=== PATIENT | male | born 1985 | race Caucasian/White ===

== ENCOUNTER 2019-06-05 00:26 | Emergency (ER) | payer BC ==
[2019-06-05 00:36] VITALS: TEMP 99.2
[2019-06-05] MEDS ORDERED: SODIUM CHLORIDE 0.9% 1,000 ML IV STA (00:52)
[2019-06-05] MEDS ORDERED: TOPICAL SKIN ADHESIVE 1 EACH AMP TOPICAL ONE (00:55)
--- NOTE | 2019-06-05 00:59 | ED ---
Syncope HPI - General Source: patient, family Mode of arrival: ambulatory Limitations: no limitations <Lucrecia Rush - Last Filed: 06/05/19 03:48> <Marialuisa Marie - Last Filed: 06/05/19 05:31> - General Chief Complaint: Syncope Stated Complaint: Fall, Nose Laceration Time Seen by Provider: 06/05/19 00:37 - History of Present Illness Initial Comments: 34-year-old male patient presents to the emergency department today for evaluation after having a syncopal episode. Patient states that he had the urge to have a bowel movement he got up went to the bathroom. Patient states he is sitting on the toilet and next thing he knew he was feeling dizzy with muffled sound and then he passed out. Patient did strike his face causing laceration and nasal bleeding. Patient states he is having facial pain. Denies any headache. Denies any blurred or double vision. Denies any neck or back pain. Patient states he has passed out one time the past but was related to alcohol use. He denies any current chest pain, shortness of breath, dizziness, weakness, abdominal pain, nausea, or vomiting. Patient believes he has had a tetanus vaccine in the last 5 years. 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 Patient follows with Dr. Muro for this and states she has had no complications. Patient denies any recent rash, fever, chills, diarrhea, constipation, back pain, numbness, tingling, hematuria, dysuria, urinary urgency, urinary frequency, or any other complaints. (Lucrecia Rush) - Related Data Previous Rx's Medication Instructions Recorded Cephalexin [Keflex] 500 mg PO Q6H #28 cap 06/05/19 Allergies Allergy/AdvReac Type Severity Reaction Status Date / Time No Known Allergies Allergy Verified 06/05/19 00:36 Review of Systems ROS Other: All systems not noted in ROS Statement are negative. <Lucrecia Rush - Last Filed: 06/05/19 03:48> ROS Other: All systems not noted in ROS Statement are negative. <Marialuisa Marie - Last Filed: 06/05/19 05:31> ROS Statement: Those systems with pertinent positive or pertinent negative responses have been documented in the HPI. Past Medical History Past Medical History: Hypertension Additional Past Medical History / Comment(s): Heart disease History of Any Multi-Drug Resistant Organisms: None Reported Past Surgical History: No Surgical Hx Reported Past Psychological History: No Psychological Hx Reported Smoking Status: Former smoker Past Alcohol Use History: None Reported Past Drug Use History: None Reported <Lucrecia Rush Reji - Last Filed: 06/05/19 03:48> General Exam Limitations: no limitations General appearance: alert, in no apparent distress, other (Physical well- developed, well-nourished adult male patient in no acute distress. Vital signs upon presentation are temperature 99.2F, pulse 89, respirations 18, blood pressure 149/96, pulse ox 99% on room air.) Eye exam: Present: normal appearance, PERRL, EOMI. Absent: scleral icterus, conjunctival injection, periorbital swelling ENT exam: Present: normal oropharynx, mucous membranes moist, TM's normal bilaterally, other (There is a 1 cm laceration to the bridge of the nasal bone. There is bleeding from bilateral nares. There is no septal hematoma. There is tenderness over the nasal bone. There are no loose or broken teeth. There is a contusion and 1 cm laceration to the bucchal surface of th upper lip, also soft tissue swelling.). Absent: normal exam Neck exam: Present: normal inspection, full ROM, other (Nontender, no step-off, no deformity to firm midline palpation of the posterior cervical spine. Full r codey of motion without pain or limitation.). Absent: tenderness, meningismus, lymphadenopathy Respiratory exam: Present: normal lung sounds bilaterally. Absent: respiratory distress, wheezes, rales, rhonchi, stridor Cardiovascular Exam: Present: regular rate, normal rhythm, normal heart sounds. Absent: systolic murmur, diastolic murmur, rubs, gallop, clicks GI/Abdominal exam: Present: soft, normal bowel sounds. Absent: distended, tenderness, guarding, rebound, rigid Back exam: Present: normal inspection, other (Nontender, no step-off, no deformity to firm midline palpation of the thoracic and lumbar vertebrae. Full range of motion without pain or limitation.). Absent: vertebral tenderness Neurological exam: Present: alert, oriented X3, CN II-XII intact Psychiatric exam: Present: normal affect, normal mood Skin exam: Present: warm, dry, intact, normal color. Absent: rash <Lucrecia Rush Reji - Last Filed: 06/05/19 03:48> Course Vital Signs 06/05/19 06/05/19 00:32 02:33 Temperature 99.2 F Pulse Rate 89 86 Respiratory 18 16 Rate Blood Pressure 149/96 135/75 O2 Sat by Pulse 99 99 Oximetry EKG Findings - EKG Comments: EKG Findings:: EKG obtained at 0045 shows normal sinus rhythm with a ventricular rate of 90, [place] interval 120, QRS duration 114, QTC 368, QTC 450. No evidence of ST elevation or depression. <Lucrecia Rush M - Last Filed: 06/05/19 03:48> Procedures - Laceration Laceration #1 Consent Obtained: verbal consent Indication: laceration Site: face Size (cm): 2 Description: stellate Depth: simple, single layer Type of Sutures: other (exofin) Patient Tolerated Procedure: well, no complications <Lucrecia Rush - Last Filed: 06/05/19 03:48> Medical Decision Making - Lab Data Result diagrams: 06/05/19 00:51 06/05/19 00:51 - Radiology Data Radiology results: report reviewed, image reviewed <Lucrecia Rush - Last Filed: 06/05/19 03:48> - Lab Data Result diagrams: 06/05/19 00:51 06/05/19 00:51 <Marialuisa Marie - Last Filed: 06/05/19 05:31> - Medical Decision Making 34-year-old male patient presented to the emergency department today for evaluation after experiencing a syncopal event. Physical examination did reveal laceration to the nasal bridge. Bleeding from the bilateral nares. Abrasion to the upper lip, laceration to the mucosal surface of the upper lip. Dentition was intact with no loose or broken teeth. Patient was neurologically intact with no focal deficits. No neck or back tenderness. Labs reviewed and are unremarkable. EKG showed normal sinus rhythm. Brain and facial bone CT was negative for any acute abnormalities other than a suspected left nasal bone fracture. Chest x-ray showed no acute cardiopulmonary process. It is felt the patient syncopal event was related to a vasovagal event due to having a bowel movement. Laceration to the nose was repaired using exofin skin adhesive. Patient be started on antibiotics for open nasal bone fracture. Patient will be discharged to follow-up with his primary care physician for recheck in 1-2 days. Return parameters were discussed in detail. He verbalizes understanding and agrees with this plan. (Lucrecia Rush) I was available for consultation in the emergency department. The history and physical exam were done by the midlevel provider. I was consulted for this patient's care. I reviewed the case with the midlevel provider and based on their presentation of the patient, I agree with the assessment, medical decision making and plan of care as documented. Chart was dictated using CE[employer] dictation software. Attempts were made to correct any dictation errors however some typographical errors may persist. (Marialuisa Marie) - Lab Data Lab Results 06/05/19 06/05/19 06/05/19 Range/Units 00:51 00:51 00:51 WBC 11.8 H (3.8-10.6) k/uL RBC 5.12 (4.30-5.90) m/uL Hgb 14.3 (13.0-17.5) gm/dL Hct 42.2 (39.0-53.0) % MCV 82.6 (80.0-100.0) fL MCH 27.9 (25.0-35.0) pg MCHC 33.8 (31.0-37.0) g/dL RDW 14.5 (11.5-15.5) % Plt Count 295 (150-450) k/uL Neutrophils % 72 % Lymphocytes % 16 % Monocytes % 5 % Eosinophils % 4 % Basophils % 1 % Neutrophils # 8.5 H (1.3-7.7) k/uL Lymphocytes # 1.9 (1.0-4.8) k/uL Monocytes # 0.6 (0-1.0) k/uL Eosinophils # 0.5 (0-0.7) k/uL Basophils # 0.1 (0-0.2) k/uL PT 10.0 (9.0-12.0) sec INR 0.9 (<1.2) APTT 20.0 L (22.0-30.0) sec Sodium 141 (137-145) mmol/L Potassium 3.8 (3.5-5.1) mmol/L Chloride 105 (98-107) mmol/L Carbon Dioxide 27 (22-30) mmol/L Anion Gap 9 mmol/L BUN 19 (9-20) mg/dL Creatinine 0.91 (0.66-1.25) mg/dL Est GFR (CKD-EPI)AfAm >90 (>60 ml/min/1.73 sqM) Est GFR (CKD-EPI)NonAf >90 (>60 ml/min/1.73 sqM) Glucose 114 H (74-99) mg/dL Calcium 9.8 (8.4-10.2) mg/dL Total Bilirubin 0.3 (0.2-1.3) mg/dL AST 28 (17-59) U/L ALT 43 (21-72) U/L Alkaline Phosphatase 113 (38-126) U/L Troponin I (0.000-0.034) ng/mL Total Protein 7.5 (6.3-8.2) g/dL Albumin 4.6 (3.5-5.0) g/dL 06/05/19 Range/Units 00:51 WBC (3.8-10.6) k/uL RBC (4.30-5.90) m/uL Hgb (13.0-17.5) gm/dL Hct (39.0-53.0) % MCV (80.0-100.0) fL MCH (25.0-35.0) pg MCHC (31.0-37.0) g/dL RDW (11.5-15.5) % Plt Count (150-450) k/uL Neutrophils % % Lymphocytes % % Monocytes % % Eosinophils % % Basophils % % Neutrophils # (1.3-7.7) k/uL Lymphocytes # (1.0-4.8) k/uL Monocytes # (0-1.0) k/uL Eosinophils # (0-0.7) k/uL Basophils # (0-0.2) k/uL PT (9.0-12.0) sec INR (<1.2) APTT (22.0-30.0) sec Sodium (137-145) mmol/L Potassium (3.5-5.1) mmol/L Chloride (98-107) mmol/L Carbon Dioxide (22-30) mmol/L Anion Gap mmol/L BUN (9-20) mg/dL Creatinine (0.66-1.25) mg/dL Est GFR (CKD-EPI)AfAm (>60 ml/min/1.73 sqM) Est GFR (CKD-EPI)NonAf (>60 ml/min/1.73 sqM) Glucose (74-99) mg/dL Calcium (8.4-10.2) mg/dL Total Bilirubin (0.2-1.3) mg/dL AST (17-59) U/L ALT (21-72) U/L Alkaline Phosphatase (38-126) U/L Troponin I <0.012 (0.000-0.034) ng/mL Total Protein (6.3-8.2) g/dL Albumin (3.5-5.0) g/dL - Radiology Data CT brain without contrast was obtained. Impression by Dr. Serra shows possibility of a minimally displaced nasal bone fracture on the left. Two-view x-ray of the chest is obtained. Report was reviewed in its entirety. Impression by Dr. Serra shows normal chest x-rays per CT of the facial bones without contrast was obtained. Report was reviewed in its entirety. Impression by Dr. Serra shows minimally displaced nasal bone fracture suspected on the left. (Lucrecia Rush) Disposition Is patient prescribed a controlled substance at d/c from ED?: No Time of Disposition: 02:22 <Lucrecia Rush - Last Filed: 06/05/19 03:48> <Marialuisa Marie - Last Filed: 06/05/19 05:31> Clinical Impression: Nasal bone fracture, Facial laceration, Syncope Disposition: HOME SELF-CARE Condition: Good Instructions (If sedation given, give patient instructions): Nasal Fracture (ED), Laceration (ED), Syncope (ED), Skin Adhesive Care (ED) Additional Instructions: Complete antibiotic prescription in full. Follow-up with your primary care physician for recheck in 1-2 days. Monitor wounds for signs or symptoms of infection including but not limited to swelling, redness, drainage, fever, or chills. Return to the emergency department immediately for any new, worsening, or concerning symptoms per Prescriptions: Cephalexin [Keflex] 500 mg PO Q6H #28 cap Referrals: Sameera Bolton DO [Primary Care Provider] - 1-2 days
[2019-06-05 01:04] LABS: Basophils # (A) 0.1 k/uL (0-0.2); Basophils % (A) 1 %; Eosinophils # (A) 0.5 k/uL (0-0.7); Eosinophils % (A) 4 %; HCT 42.2 % (39.0-53.0); HGB 14.3 gm/dL (13.0-17.5); Lymphocytes # (A) 1.9 k/uL (1.0-4.8); Lymphocytes % (A) 16 %; MCH 27.9 pg (25.0-35.0); MCHC 33.8 g/dL (31.0-37.0); MCV 82.6 fL (80.0-100.0); Mean Platelet Volume 8.2; Monocytes # (A) 0.6 k/uL (0-1.0); Monocytes % (A) 5 %; Neutrophils # (A) 8.5 k/uL (1.3-7.7); Neutrophils % (A) 72 %; Platelet Count 295 k/uL (150-450); RBC 5.12 m/uL (4.30-5.90); RDW 14.5 % (11.5-15.5); WBC 11.8 k/uL (3.8-10.6)
[2019-06-05 01:13] LABS: ALT 43 U/L (21-72); AST 28 U/L (17-59); African American GFR (CKD) >90 (>60 ml/min/1.73 sqM); Albumin 4.6 g/dL (3.5-5.0); Alkaline Phosphatase 113 U/L (38-126); Anion Gap 9 mmol/L; Blood Urea Nitrogen 19 mg/dL (9-20); Calcium 9.8 mg/dL (8.4-10.2); Carbon Dioxide 27 mmol/L (22-30); Chloride 105 mmol/L (98-107); Glucose 114 mg/dL (74-99); Potassium 3.8 mmol/L (3.5-5.1); Sodium 141 mmol/L (137-145); Total Bilirubin 0.3 mg/dL (0.2-1.3); Total Protein 7.5 g/dL (6.3-8.2)
[2019-06-05 01:22] LABS: INR 0.9 (<1.2)
--- NOTE | 2019-06-05 01:44 | CT ---
EXAM: CT Head Without Intravenous Contrast CLINICAL HISTORY: syncope TECHNIQUE: Axial computed tomography images of the head/brain without intravenous contrast. CTDI is 45.2 mGy and DLP is 1515 mGy-cm. This CT exam was performed using one or more of the following dose reduction techniques: automated exposure control, adjustment of the mA and/or kV according to patient size, and/or use of iterative reconstruction technique. COMPARISON: No relevant prior studies available. FINDINGS: Brain: Unremarkable. No hemorrhage. No significant white matter disease. No edema. Ventricles: Unremarkable. No ventriculomegaly. Bones/joints: Possibly minimally displaced nasal bone fracture on the left Soft tissues: Unremarkable. Sinuses: Because of thickening in the left maxillary sinus. Mastoid air cells: Unremarkable as visualized. No mastoid effusion. IMPRESSION: Possibility of a minimally displaced nasal bone fracture on the left.
--- NOTE | 2019-06-05 01:47 | CT ---
EXAM: CT Maxillofacial Without Intravenous Contrast CLINICAL HISTORY: Pain TECHNIQUE: Axial computed tomography images of the face without intravenous contrast. CTDI is 45.2 mGy and DLP is 1515.6 mGy-cm. This CT exam was performed using one or more of the following dose reduction techniques: automated exposure control, adjustment of the mA and/or kV according to patient size, and/or use of iterative reconstruction technique. COMPARISON: No relevant prior studies available. FINDINGS: Bones/joints: Minimally displaced left nasal bone fracture suspected. The mandible and maxilla are intact. Soft tissues: Unremarkable. Orbits: Left and right globe are intact. No evidence for fracture the orbits. No evidence for retrobulbar hemorrhage or hematoma. Sinuses: Mucosal thickening in the left maxillary sinus. IMPRESSION: Minimally displaced nasal bone fracture suspected on the left
--- NOTE | 2019-06-05 01:49 | XR ---
EXAM: XR Chest, 2 Views CLINICAL HISTORY: : syncope TECHNIQUE: Frontal and lateral views of the chest. COMPARISON: No relevant prior studies available. FINDINGS: Lungs: Unremarkable. No consolidation. Pleural space: Unremarkable. No pneumothorax. Heart: Unremarkable. No cardiomegaly. Mediastinum: Unremarkable. Bones/joints: Unremarkable. IMPRESSION: Normal chest x-rays.
[2019-06-05] MEDS ORDERED: CEPHALEXIN 500MG STARTER PACK 4 CAP BTL PO STA (02:23)
[2019-06-05 02:34] VITALS: BP 135/75; PULSE 86; RESP 16
== END 2019-06-05 02:33 | disposition home or self-care (01) ==
LOC: EC 00:26
DX: S02.2XXA Fracture of nasal bones, initial encounter for closed fracture (principal); S01.21XA Laceration without foreign body of nose, initial encounter; S01.511A Laceration without foreign body of lip, initial encounter; Z87.891 Personal history of nicotine dependence; W19.XXXA Unspecified fall, initial encounter; Y92.002 Bathroom of unspecified non-institutional (private) residence as the place of occurrence of the external cause
CPT/HCPCS: 12011; 36415; 70450; 70486; 71046; 80053; 84484; 85025; 85610; 85730; 93005; 96360; 99284

== ENCOUNTER → 2021-01-29 | Outpatient (CLI) | payer BC ==
[2021-01-30 16:52] LABS: T4, Free (Free Thyroxine) 1.1 ng/dL (0.80-1.80)
== END | disposition home or self-care (01) ==
LOC: LABWHC1 14:48
PROVIDERS: ATTEND Internal Medicine Interventional Cardiology
DX: E05.90 Thyrotoxicosis, unspecified without thyrotoxic crisis or storm (principal)
CPT/HCPCS: 36415; 84439; 84443

== ENCOUNTER → 2023-03-25 | Outpatient (CLI) | payer BC ==
--- NOTE | 2023-03-25 15:27 | CT ---
EXAMINATION TYPE: CT angio chest DATE OF EXAM: 03/25/2023 COMPARISON: None HISTORY: Bicuspid malformation since . CT DLP: 879.90 mGycm CONTRAST: CTA thoracic aorta with 3-D reconstruction is performed and with IV Contrast, patient injected with 1 00cc mL of Isovue 370. Contrast CTA of the thoracic aorta was performed from the lung apex through the upper abdomen. 3D re construction imaging obtained at a separate workstation. CT Chest: THORACIC AORTA: No evidence for thoracic aortic aneurysm. Mild atheromatous changes seen. There is n o evidence for dissection or periaortic collection. LUNGS: The lungs are clear and free of infiltrate or atelectasis. No pulmonary nodule or mass is det ected. No pleural effusion or CT evidence of interstitial lung disease. MEDIASTINUM: No evidence for mediastinal hematoma. The heart is not enlarged. There may be a bicu spid aortic valve. No evidence for mediastinal mass or adenopathy. Moderate fixed hiatal hernia. HILAR STRUCTURES: No evidence for mass. No hilar adenopathy is appreciated. OTHER: No significant abnormality. IMPRESSION- No evidence for aneurysm or dissection.
== END | disposition home or self-care (01) ==
LOC: RADCTMAIN 14:17
PROVIDERS: ATTEND Internal Medicine Interventional Cardiology
DX: I71.20 Thoracic aortic aneurysm, without rupture, unspecified (principal)
CPT/HCPCS: 71275; Q9967

== ENCOUNTER 2023-05-10 13:13 | Day surgery (SDC) | payer BC ==
[2023-05-05 16:00] VITALS: BMI 31.9
[~2023-05-10 13:13] MED LIST: LACTATED RINGERS 1,000 ML IV SCH
[2023-05-10 13:51] VITALS: TEMP 97.1
[2023-05-10] MEDS ORDERED: PROPOFOL 10 MG/ML 20 ML VIAL IV ONE (14:50)
[2023-05-10] MEDS ORDERED: LIDOCAINE 2% INJ 20 MG/ML (2 ML VIAL) ONE (14:50)
--- NOTE | 2023-05-10 15:01 | P.OP ---
Date of Procedure: 05/10/23 Preoperative Diagnosis: GERD Hiatal hernia Postoperative Diagnosis: GERD Moderate size fixed hiatal hernia Procedure(s) Performed: EGD Anesthesia: MAC Surgeon: Martínez Baeza Pathology: other (Antrum, esophagus) Condition: stable Disposition: PACU Description of Procedure: The patient's placed on the endoscopy table in the lateral position. He received IV sedation. The gastro-/oropharynx passed in the esophagus and. Scope was then placed through the pylorus. The first and second portion of the duodenum appeared normal. Scope summer back the antrum this. Mildly inflamed. A biopsies performed. The scope was then retroflexed and there was a moderate size fixed hiatal hernia. GE junction was at 38 cm. The distal esophagus appeared inflamed. A biopsies performed. The proximal esophagus. Scope withdrawn for patient.
[2023-05-10 15:31] VITALS: BP 124/79; PULSE 69; RESP 16
== END 2023-05-10 15:45 | disposition home or self-care (01) ==
LOC: ORWHC2ENDO 13:13
PROVIDERS: ATTEND Surgery
DX: K29.50 Unspecified chronic gastritis without bleeding (principal); K21.00 Gastro-esophageal reflux disease with esophagitis, without bleeding; K44.9 Diaphragmatic hernia without obstruction or gangrene; I10 Essential (primary) hypertension; E78.5 Hyperlipidemia, unspecified; Z87.891 Personal history of nicotine dependence; Z79.899 Other long term (current) drug therapy
CPT/HCPCS: 88305; 43239; J2704; J2001

== ENCOUNTER → 2023-06-08 | Outpatient (CLI) | payer BC ==
[2023-06-09 01:28] LABS: Basophils # (A) 0.08 X 10*3/uL (0.00-0.10); Basophils % (A) 0.9 %; Eosinophils # (A) 0.45 X 10*3/uL (0.04-0.35); HCT 43.7 % (39.6-50.0); HGB 13.6 d/dL (12.0-15.0); Lymphocytes # (A) 1.83 X 10*3/uL (0.90-5.00); Lymphocytes % (A) 20.3 %; MCH 27.8 pg (27.0-32.0); MCHC 31.1 d/dL (32.0-37.0); MCV 89.4 FL (80.0-97.0); Mean Platelet Volume 11.7 FL (9.5-12.2); Monocytes # (A) 0.86 X 10*3/uL (0.20-1.00); Monocytes % (A) 9.6 %; NRBC Per 100 WBC 0 X 10*3/uL (0.00-0.01); Neutrophils # (A) 5.75 X 10*3/uL (1.80-7.70); Neutrophils % (A) 63.9 %; Platelet Count 332 X 10*3/uL (140-440); RBC 4.89 X 10*6/uL (4.40-5.60); RDW 12.8 % (11.5-14.5)
== END | disposition home or self-care (01) ==
LOC: LABPAT 16:03
PROVIDERS: ATTEND Surgery
DX: Z01.812 Encounter for preprocedural laboratory examination (principal)
CPT/HCPCS: 85025

== ENCOUNTER 2023-06-14 06:49 | Inpatient (IN) | payer BC ==
[~2023-06-14 06:49] MED LIST changes: +ACETAMINOPHEN TAB 500 MG TAB PO PRN; +DEXAMETHASONE SOD PHOSPHATE 4 MG/ML 1 ML VIAL IV ONE; +HEPARIN SODIUM,PORCINE/PF 5,000 UNIT/0.5 ML SYRINGE SQ PRN; +HYDROmorphone 0.5 MG/0.5 ML SYRINGE IVP PRN; +LIDOCAINE 1% (10MG/ML) FOR IV START INTRADERMA PRN; +ONDANSETRON 4 MG/2 ML VIAL IVP PRN; +droPERidol 5 MG/2 ML VIAL IVP ONE
[2023-06-14] MEDS ORDERED: KETOROLAC 15 MG/ML 1 ML VIAL ONE (07:58)
[2023-06-14] MEDS ORDERED: SUCCINYLCHOLINE CHLORIDE 200 MG/10 ML VIAL IV ONE (07:58)
[2023-06-14] MEDS ORDERED: SUGAMMADEX SODIUM 200 MG/2 ML SDV IV ONE (07:58)
[2023-06-14] MEDS ORDERED: ROCURONIUM 10 MG/ML (5 ML VIAL) IV ONE (07:58)
[2023-06-14] MEDS ORDERED: fentaNYL (PF) 50 MCG/ML 2 ML AMP ONE (07:58)
[2023-06-14] MEDS ORDERED: MIDAZOLAM 2 MG/2 ML VIAL ONE (07:58)
[2023-06-14] MEDS ORDERED: PROPOFOL 10 MG/ML 20 ML VIAL IV ONE (07:58)
[2023-06-14] MEDS ORDERED: BUPIVACAINE (PF) 0.25% 30 ML VIAL SQ ONE (08:25)
[2023-06-14] MEDS ORDERED: ONDANSETRON 4 MG/2 ML VIAL IVP PRN (09:08)
[2023-06-14] MEDS ORDERED: HYDROmorphone 1 MG/ML 1 ML SYRINGE IVP PRN (09:08)
--- NOTE | 2023-06-14 09:08 | P.OP ---
Date of Procedure: 06/14/23 Preoperative Diagnosis: GERD Postoperative Diagnosis: GERD Hiatal hernia Procedure(s) Performed: Laparoscopic Brianda fundoplication Anesthesia: SHAYAN Surgeon: Martínez Baeza Pathology: none sent Condition: stable Disposition: PACU Description of Procedure: HarThe patient was placed on the operating table in the supine position. The patient received general anesthesia. And was placed in dorsal lithotomy position. The patient was prepped and draped in the usual sterile fashion. The skin incision sites were anesthetized with 1% local Xylocaine. The skin was incised in the left periumbilical area and then using a blade less 5 mm trocar under direct visualization panel cavity was entered. After adequate insufflation the laparoscope was then placed into the peritoneal cavity. Next a 5 mm trochars placed in the right epigastric position. Another 5 millimeter trocar the right lateral position. Another 5 millimeter trocar in the left lateral position a 5 mm trocar is placed in the left epigastric position. And then the initial 5 mm trocar was exchanged for a 10 mm trocar. The left lateral lobe liver was retracted. The hernia was seen. The crural defect was then dissected using the Harmonic scissors device. A 360 crural dissection was performed the esophagus stomach was reduced back into the peritoneal Cavity. The crural defect was then closed using 2-0 Ethibond suture. Next the fundus of the stomach was mobilized using the Ilfeld scissors device. and then a 58- Ukrainian bougie dilator was placed oropharynx passed into the esophagus and stomach the fundal plication wrap was then performed by grasping the fundus posteriorly and bringing it around the esophagus and stomach fundoplication was then performed using 2-0 Ethibond suture. Care was taken that the fundal location rested over top of the intra-abdominal esophagus. There was no injury seen to the stomach or esophagus. The dilator was then withdrawn. The abdomen was irrigated there is no bleeding seen. The trochars were then withdrawn and then skin incision sites were closed using 3-0 Monocryl suture Steri-Strips are applied. Patient thought procedure well and sent to recovery room in stable condition.
[2023-06-14] MEDS: D5-0.45% NACL WITH KCL 20MEQ/L 1,000 ML IV SCH ×2 (13:15→18:33)
[2023-06-14] MEDS: PANTOPRAZOLE 40 MG/10 ML VIAL IVP SCH (13:15)
[2023-06-14 14:56] VITALS: BMI 32.8
[2023-06-15] MEDS: D5-0.45% NACL WITH KCL 20MEQ/L 1,000 ML IV SCH ×2 (04:48→05:30)
[2023-06-15 07:27] VITALS: BP 121/84; PULSE 61; RESP 17; TEMP 97.8
[2023-06-15] MEDS ORDERED: HYDROcodone/APAP 5-325MG 1 EACH TAB PO PRN (07:53)
[2023-06-15] MEDS: PANTOPRAZOLE 40 MG/10 ML VIAL IVP SCH (08:44)
[2023-06-15] MEDS ORDERED: METOPROLOL SUCCINATE (ER) 50 MG TAB.ER.24H PO SCH (09:00)
[2023-06-15] MEDS ORDERED: ENOXAPARIN 40 MG/0.4 ML SYRINGE SQ SCH (09:00)
--- NOTE | 2023-06-15 09:53 | P.DS ---
Providers Date of admission: 06/14/23 06:49 Expected date of discharge: 06/15/23 Attending physician: Martínez Baeza Consults: 06/14/23 09:08 Consult Physician Routine Consulting Provider: Reynaldo Ruelas Consult Reason/Comments: Medical management Do you want consulting provider notified?: Yes Primary care physician: Reynaldo Ruelas MD Hospital Course: Discharge diagnosis 1. GERD and hiatal hernia status post laparoscopic Brianda fundoplication Hospital course This is a 38-year-old male with a known history of GERD and hiatal hernia. He is status post laparoscopic Brianda fundoplication. He tolerated surgery well. Pain is controlled. He is tolerating diet. He has been up and ambulating. He is having flatus. Denies any difficult urinating. He is afebrile. He is stable for discharge. Incision sites clean dry and intact. Please refer to chart for any further details. Physician Auto Locator note has been reviewed by physician. Signing provider agrees with the documented findings, assessment, and plan of care. Patient Condition at Discharge: Stable Plan - Discharge Summary Discharge Rx Participant: No New Discharge Prescriptions: New Acetaminophen Tab [Tylenol] 1,000 mg PO Q6HR PRN #30 tablet PRN Reason: Pain oxyCODONE HCL [OxyIR] 5 mg PO Q6H PRN 3 Days #10 tab PRN Reason: Pain Continue Metoprolol Succinate (ER) [Toprol XL] 50 mg PO QAM Losartan-Hctz 50-12.5 mg [Hyzaar 50-12.5] 1 tab PO QAM Atorvastatin [Lipitor] 40 mg PO HS Discharge Medication List Atorvastatin [Lipitor] 40 mg PO HS 05/05/23 [History] Losartan-Hctz 50-12.5 mg [Hyzaar 50-12.5] 1 tab PO QAM 05/05/23 [History] Metoprolol Succinate (ER) [Toprol XL] 50 mg PO QAM 05/05/23 [History] Acetaminophen Tab [Tylenol] 1,000 mg PO Q6HR PRN #30 tablet 06/15/23 [Rx] oxyCODONE HCL [OxyIR] 5 mg PO Q6H PRN 3 Days #10 tab 06/15/23 [Rx] Follow up Appointment(s)/Referral(s): Martínez Baeza MD [STAFF PHYSICIAN] - 1 Week Activity/Diet/Wound Care/Special Instructions: No driving while taking OxyIR No lifting over 10 pounds Shower daily. No soaking or tub baths for 2 weeks Very light activity until you are reevaluated at your follow up appointment with your surgeon No straws or carbonated beverages Continue a full liquid diet/soft diet for the next 2 weeks and until seen by surgeon Discharge Disposition: HOME SELF-CARE
--- NOTE | 2023-06-15 14:07 | P.CONS ---
History of Present Illness - Reason for Consult Consult date: 06/15/23 Medical management hypertension Requesting physician: Martínez Baeza - Chief Complaint Gastroesophageal reflux disease - History of Present Illness This is a pleasant 38-year-old gentleman past medical history significant for gastroesophageal reflux disease, hiatal hernia, hypertension, hyperlipidemia former nicotine dependence and multiple other medical issues status post laparoscopic Brianda fundoplication. Tolerated procedure well. Pain controlled.Maintained on IV fluids, tolerating Brianda clear liquid diet. Denies nausea or vomiting. No bowel movement, positive flatus. Ambulating in room. Denies chest pain, palpitations or shortness of breath. Maintaining O2 sats in the high 90s on room air. Afebrile. Blood pressures minimally soft. Review of Systems Constitutional: Denied any fatigue denied any fever. Cardio vascular: denied any chest pain, palpitations Gastrointestinal denied any nausea vomiting Pulmonary: Denied any shortness of breath cough Neurologic denied any new focal deficits ROS Statement: Those systems with pertinent positive or pertinent negative responses have been documented in the HPI. ROS Other: All systems not noted in ROS Statement are negative. Past Medical History Past Medical History: GERD/Reflux, Hyperlipidemia, Hypertension Additional Past Medical History / Comment(s): Congenital heart valve defect, hiatal hernia History of Any Multi-Drug Resistant Organisms: None Reported Past Surgical History: Tonsillectomy Additional Past Surgical History / Comment(s): EGD, teeth extractions. Past Anesthesia/Blood Transfusion Reactions: No Reported Reaction Additional Past Anesthesia/Blood Transfusion Reaction / Comm: Pt has never received blood Smoking Status: Former smoker - Past Family History Mother Family Medical History: Diabetes Mellitus Father Additional Family Medical History / Comment(s): Congenital heart valve disorder. Medications and Allergies Home Medications Medication Instructions Recorded Confirmed Type Atorvastatin [Lipitor] 40 mg PO HS 05/05/23 06/10/23 History Losartan-Hctz 50-12.5 mg [Hyzaar 1 tab PO QAM 05/05/23 06/10/23 History 50-12.5] Metoprolol Succinate (ER) [Toprol 50 mg PO QAM 05/05/23 06/10/23 History XL] Acetaminophen Tab [Tylenol] 1,000 mg PO Q6HR PRN #30 tablet 06/15/23 Rx oxyCODONE HCL [OxyIR] 5 mg PO Q6H PRN 3 Days #10 tab 06/15/23 Rx Allergies Allergy/AdvReac Type Severity Reaction Status Date / Time No Known Allergies Allergy Verified 06/14/23 07:01 Physical Exam Vitals: Vital Signs Temp Pulse Resp BP Pulse Ox 06/15/23 07:19 97.8 F 61 17 121/84 98 06/15/23 01:18 97.7 F 69 16 111/68 96 06/14/23 20:00 70 06/14/23 19:26 98.4 F 70 16 132/88 96 Intake and Output 06/14/23 06/15/23 06/15/23 22:59 06:59 14:59 Intake Total 1550 Balance 1550 Intake: Intake, IV Titration 1550 Amount D5-0.45% NaCl with KCl 1500 20Meq/l 1,000 ml @ 125 mls/hr IV .Q8H KRISTIN Rx#: [id number] ceFAZolin 2 gm In Sodium 50 Chloride 0.9% 50 ml @ 100 mls/hr IVPB Q8HR KRISTIN Rx# :[id number] Other: # Voids 1 # Bowel Movements 1 PHYSICAL EXAM: VITAL SIGNS: [As above] GENERAL: Pleasant, alert and oriented 3, sitting up at bedside eating breakfast, in no acute distress HEENT: Normocephalic, Conjunctivae normal. eyes normal. NECK: Supple, No JVD. No thyroid enlargement. No LNs CARDIOVASCULAR: S1, S2 regular.. No murmur RESPIRATION: Unlabored, Breath sounds diminished in the bases. No rhonchi or crackles. No bronchial breathing. ABDOMEN: Soft, status post surgery. Positive bowel sounds LEGS: No edema. no swelling NERVOUS SYSTEM: Cranial N 2-12 grossly normal.No focal deficits. Strength and sensation grossly intact.. Skin: Warm and dry, no rash Results CBC & Chem 7: 06/14/23 07:20 Assessment and Plan Assessment: Gastroesophageal reflux disease, hiatal hernia status post laparoscopic Brianda fundoplication Hypertension Former nicotine dependence Plan: Continue on current medication regime ,monitoring and symptomatic treatment. Home medications have been reviewed and resumed accordingly. Losartan/HCTZ to be resumed starting tomorrow. Diet/pain management as per primary. Discharge planning in progress as per general surgery today. Follow- up with PCP in one week. The impression and plan of care has been dictated as directed. : I performed a history and examination of this patient, discussed the same with the dictator. I agree with the dictator's note ,documented as a scribe. Any additional findings or plans will be noted.
== END 2023-06-15 11:23 | disposition home or self-care (01) | DRG 328 ==
LOC: 2ORMAIN 06:49 → 5NMEDONC 09:29
PROVIDERS: ADMIT Surgery; ATTEND Surgery
PROC: 0DV44ZZ Restriction of Esophagogastric Junction, Percutaneous Endoscopic Approach (ICD-10-PCS; principal; 2023-06-14 08:15)
DX: K21.9 Gastro-esophageal reflux disease without esophagitis (principal); K44.9 Diaphragmatic hernia without obstruction or gangrene; E78.5 Hyperlipidemia, unspecified; I10 Essential (primary) hypertension; Z87.891 Personal history of nicotine dependence; Z79.899 Other long term (current) drug therapy
CPT/HCPCS: 84132